=== PATIENT | female | born 1985 | race Hispanic/Latino ===

== ENCOUNTER → 2016-04-12 | Outpatient (CLI) | payer OTHER ==
[~2016-04-12] MED LIST: IBP800T PO; IBUP-1773 PO; OXYC-12 PO; PREN1TAB19 PO; PREN1TAB38 PO
== END ==
LOC: LAB 07:12
PROVIDERS: ATTEND Family Medicine
DX: O99.810 Abnormal glucose complicating pregnancy (principal)
CPT/HCPCS: 36415; 82951; 82952; 82962

== ENCOUNTER 2016-06-26 04:15 | Inpatient (IN) | payer OTHER ==
[2016-06-26] VITALS (20 sets, daily range): BP systolic 89–121; BP diastolic 46–75
[~2016-06-26] VITALS: Ht 147.3 cm; Wt 79.4 kg
[~2016-06-26 04:15] MED LIST changes: -IBUP-1773 PO
[2016-06-26] MEDS ORDERED: LACTATED RINGERS 1,000 ML IV ONE (04:35)
[2016-06-26] MEDS ORDERED: D5 LR IV SOLUTION 1,000 ML IV SCH (04:44)
[2016-06-26] MEDS ORDERED: BUTORPHANOL INJ 2 MG/ML (STADOL) VIAL IV PRN (04:45)
[2016-06-26] MEDS ORDERED: NS (IVPB) 50 ML ONE (04:46)
[2016-06-26] MEDS ORDERED: AMPICILLIN 2000 MG INJECTION (IM/IV) ONE (04:46)
[2016-06-26] MEDS ORDERED: OXYTOCIN/NORMAL SALINE 500 ML IV ONE (04:54)
[2016-06-26] MEDS ORDERED: MEPIVACAINE (CARBOCAINE) 2% 50 ML VIAL ONE (04:54)
[2016-06-26] MEDS ORDERED: MINERAL OIL CONCENTRATE 99.9% 15 ML UDC ONE (04:54)
[2016-06-26] MEDS ORDERED: LACTATED RINGERS 1,000 ML IV SCH (04:58)
[2016-06-26] MEDS ORDERED: AMPICILLIN INJECTION 2,000 MG in NS (IVPB) 50 ML IV SCH (04:58)
[2016-06-26 05:19] LABS: BASOPHILS % (AUTO) 0 % (0-10); EOSINOPHILS # (AUTO) 0.1 10^3/uL (0.0-0.3); EOSINOPHILS % (AUTO) 1 % (0-10); LYMPHOCYTES # (AUTO) 1.9 X 10^3 (1.0-4.0); LYMPHOCYTES % (AUTO) 21 % (12-44); MEAN CORPUSCULAR HEMOGLOBIN 31 PG (25-34); MEAN CORPUSCULAR HGB CONC 34 G/DL (32-36); MEAN CORPUSCULAR VOLUME 91 FL (80-99); MEAN PLATELET VOLUME 11.2 FL (7.4-10.4); MONOCYTES # (AUTO) 0.5 X 10^3 (0.0-1.0); MONOCYTES % (AUTO) 6 % (0-12); NEUTROPHILS # (AUTO) 6.4 X 10^3 (1.8-7.8); NEUTROPHILS % (AUTO) 73 % (42-75); PLATELET COUNT 195 10^3/uL (130-400); RED BLOOD COUNT 4.11 10^6/uL (4.35-5.85); RED CELL DISTRIBUTION WIDTH 13.9 % (10.0-14.5); WHITE BLOOD COUNT 8.9 10^3/uL (4.3-11.0)
--- NOTE | 2016-06-26 05:26 | History & Physical-OB ---
OB - Chief Complaint & HPI Date Date of Admission: Date of Admission: Jun 26, 2016 at 04:37 Chief Complaint/History OB-Reason for Admission/Chief: Onset of Labor Hx : 4 Hx Para: 3 Expected Date of Delivery: Jun 29, 2016 Gestational Age in Weeks: 39 Gestational Age in Days: 4 Admission Nurse Assessment Rev: Yes History of Labs GBS positive Allergies and Home Medications Allergies Coded Allergies: No Known Drug Allergies (Unverified , 11/30/10) Home Medications Vit/Fe Fumarate/Fa 1 Each Tablet, 1 EACH PO DAILY, (Reported) OB - History Hx of Present Care: Yes Ultrasounds: Normal mid trimester US Obstetrical Complications: None Medical Complications: None Obstetrical History Hx : 4 Hx Para: 3 Hx Termination: No Hx Total # of Abortions (Spona: 0 Hx Multiple Gestation: No Hx Stillbirth: No Hx Complication: No Hx Induced Hypertens: No Hx Maternal Gestational Diabet: No Delivery History Hx Dystocia: No Hx Large For Gestational Age I: No Hx Small for Gestational Age I: No Hx Section: No Hx Vaginal Delivery Post C-Sec: No Hx Blood Disorders: Yes Patient Past Medical History No chronic medical problems Social History/Family History Alcohol Use: Denies Use Recreational Drug Use: No Immunizations Tetanus Booster (TDap): Unknown OB - Admission Exam Physical Exam Vitals: Vital Signs 06/26/16 04:31 Temp 98.5 Pulse 94 Resp 18 B/P (MAP) 118/75 O2 Delivery Room Air Heart: Rhythm Normal Lungs: Clear Abdomen: Gravid Cervical Dilatation: 7cm Effacement: 75% Membranes: Intact Heart Rate: 140's Accelerations: Accelerations Present Intensity: Moderate Labs Laboratory Tests Test 06/26/16 04:45 Range/Units White Blood Count 8.9 4.3-11.0 10^3/uL Red Blood Count 4.11 L 4.35-5.85 10^6/uL Hemoglobin 12.8 11.5-16.0 G/DL Hematocrit 37 35-52 % Mean Corpuscular Volume 91 80-99 FL Mean Corpuscular Hemoglobin 31 25-34 PG Mean Corpuscular Hemoglobin Concent 34 32-36 G/DL Red Cell Distribution Width 13.9 10.0-14.5 % Platelet Count 195 130-400 10^3/uL Mean Platelet Volume 11.2 H 7.4-10.4 FL Neutrophils (%) (Auto) 73 42-75 % Lymphocytes (%) (Auto) 21 12-44 % Monocytes (%) (Auto) 6 0-12 % Eosinophils (%) (Auto) 1 0-10 % Basophils (%) (Auto) 0 0-10 % Neutrophils # (Auto) 6.4 1.8-7.8 X 10^3 Lymphocytes # (Auto) 1.9 1.0-4.0 X 10^3 Monocytes # (Auto) 0.5 0.0-1.0 X 10^3 Eosinophils # (Auto) 0.1 0.0-0.3 10^3/uL Basophils # (Auto) 0.0 0.0-0.1 10^3/uL OB - Assessment/Plan/Diagnosis Assessment Assessment: active labor Plan Plan: Other (labor management) Other Plan -doesn't desire epidural -stadol for IV analgesia 2. GBS positive -ampicillin dose PABLITO RICKEY FAM MD Jun 26, 2016 05:25
[2016-06-26] MEDS ORDERED: CATHETER FLUSH 10 ML SYR IV SCH ×2 (06:00→14:00)
[2016-06-26] MEDS ORDERED: MEPIVACAINE (CARBOCAINE) 2% 50 ML VIAL INJ PRN (06:30)
[2016-06-26] MEDS: OXYTOCIN/NORMAL SALINE 500 ML IV SCH ×2 (07:33→09:21)
--- NOTE | 2016-06-26 07:48 | OB Labor & Delivery Record ---
L&D History Date of Service Date of Service: Jun 26, 2016 History Expected Date of Delivery: Jun 29, 2016 Gestational Age in Weeks: 39 Hx : 4 Hx Para: 3 Complications Events: Routine care Operative Indications (Cesarea: N/A-Vaginal Delivery Intrapartal Events: None L&D Stage1 Stage One Onset of Labor - Date: Jun 26, 2016 Onset of Labor - Time: 03:00 Monitors and Tracing Monitor Mode: Internal Heart Rate: 130 Monitor Accelerations: Uniform Monitor Decelerations: None Station: 0 Business Office Assistant Variability: Average (6-10) Short Term Variability: Present Presentation: Vertex Vital Signs VS - Last 72 Hours, by Label 06/26/16 06/26/16 06/26/16 06/26/16 04:31 05:07 05:38 06:07 Temp 98.5 Pulse 94 90 93 90 Resp 18 18 18 18 B/P (MAP) 118/75 111/62 121/68 109/62 O2 Delivery Room Air Room Air Room Air Room Air 06/26/16 06:40 Pulse 93 Resp 18 B/P (MAP) 119/71 O2 Delivery Room Air Signs of Distress by FHT Signs of Distress no Rupture of Membranes Spontaneous Ruture of Membrane: No Amniotic Membrane Rupture Time: 0537 Amniotic Membrane Fluid Desc.: Clear L&D Stage2 Stage Two Stage II Date: Jun 26, 2016 Stage II Time: 07:33 Monitors and Tracing Monitor Mode: Internal Heart Rate: 130 Monitor Decelerations: None Business Office Assistant Variability: Average (6-10) Short Term Variability: Present Position: Left Occiput Anterior Presentation: Vertex Signs of Distress by FHT Signs of Distress no Cord Descript/Complications Cord Vessel Description: 3 Vessels Delivery Type Infant Delivery Method: Spontaneous Vaginal Anterior Shoulder: Left Episiotomy/Perineal Laceration Laceraction(s)/Extensions: No Condition of Infant Delivery 1 minute Comment: 8 5 minute Comment: 9 Condition of Condition of Infant: Living Exam: No Observed Abnormalities Resuscitation Resuscitation: N/A - Spontaneous Resp L&D Stage3 Stage Three Stage III Date: Jun 26, 2016 Stage III Time: 07:36 Pictocin Pitocin ml/hr: 125 Placenta Delivery Placenta Delivery: Spontaneous Delivery Summary Summary 150cc Condition of Delivery Examined: Cervix Examined Post Hemorrhage: No RICKEY FAM MD Jun 26, 2016 07:48
[2016-06-26] MEDS: IBUPROFEN 600 MG (MOTRIN) TAB PO SCH ×3 (07:57→21:13)
[2016-06-26] MEDS ORDERED: WITCH HAZEL(TUCKS) 40 EA JAR TOP PRN (08:00)
[2016-06-26] MEDS ORDERED: HYDROcodone/APAP 5 MG/325 MG (LORTAB) TAB PO PRN (08:00)
[2016-06-26] MEDS ORDERED: TETANUS,DIPTH,PERTUSS P/F (BOOSTRIX) 0.5 ML VIAL IM ONE (08:00)
[2016-06-26] MEDS ORDERED: MEASLES,MUMPS,RUBELLA 1 EA INJ SQ ONE (08:00)
[2016-06-26] MEDS ORDERED: BENZOCAINE/MENTHOL (DERMOPLAST) 56 ML CAN TP PRN (08:00)
[2016-06-27 00:40] VITALS: BP 106/66
[2016-06-27] MEDS: IBUPROFEN 600 MG (MOTRIN) TAB PO SCH ×3 (03:42→15:17)
[2016-06-27 05:20] VITALS: BP 98/59
[2016-06-27 06:47] LABS: BASOPHILS % (AUTO) 0 % (0-10); EOSINOPHILS # (AUTO) 0.1 10^3/uL (0.0-0.3); EOSINOPHILS % (AUTO) 1 % (0-10); LYMPHOCYTES # (AUTO) 2.1 X 10^3 (1.0-4.0); LYMPHOCYTES % (AUTO) 23 % (12-44); MEAN CORPUSCULAR HEMOGLOBIN 32 PG (25-34); MEAN CORPUSCULAR HGB CONC 34 G/DL (32-36); MEAN CORPUSCULAR VOLUME 92 FL (80-99); MEAN PLATELET VOLUME 10.9 FL (7.4-10.4); MONOCYTES # (AUTO) 0.5 X 10^3 (0.0-1.0); MONOCYTES % (AUTO) 6 % (0-12); NEUTROPHILS # (AUTO) 6.5 X 10^3 (1.8-7.8); NEUTROPHILS % (AUTO) 71 % (42-75); PLATELET COUNT 178 10^3/uL (130-400); RED BLOOD COUNT 3.67 10^6/uL (4.35-5.85); RED CELL DISTRIBUTION WIDTH 14.4 % (10.0-14.5); WHITE BLOOD COUNT 9.2 10^3/uL (4.3-11.0)
[2016-06-27] MEDS ORDERED: PRENATAL VITAMIN 1 EA TAB PO SCH (07:00)
[2016-06-27] MEDS ORDERED: IBUP-1773 PO (08:26)
--- NOTE | 2016-06-27 08:28 | Discharge Inst-Women's Service ---
Discharge Inst-Women's Serv Depart Medication/Instructions New, Converted or Re-Newed RX: RX on Chart Consults/Follow Up Additional Follow Up: Yes (with Dr. Fam in 6 weeks.) Activity Activity: Activity as Tolerated Nothing Inside Vagina: No [place] (for 6 weeks) Diet Discharge Diet: No Restrictions Return to The Hospital For: as below Symptoms to Report to : Swelling Increased, Bleeding Excessive, Urine Color Change, Fever Over 101 Degrees F, Vaginal Discharge Foul For Any Problems or Questions: Contact Your Physician RICKEY FAM MD Jun 27, 2016 08:28
--- NOTE | 2016-06-27 08:32 | Discharge Summary ---
Diagnosis/Chief Complaint Date of Admission Jun 26, 2016 at 04:37 Date of Discharge June 27, 2016 Admission Diagnosis Admission Diagnosis 1. Intrauterine at 39 weeks 4 days Discharge Diagnosis 1. Intrauterine at 39 weeks 4 days Chief Complaint/HPI Chief Complaint/HPI 31-year-old 4 now term for female who initially presented to labor and delivery at 39 weeks and 4 days gestation with onset of labor. 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 She was unsure whether her membranes were ruptured at home but there was slight leakage of clear fluid on the floor. Her EDC was noted to be at June. Patient received her care through [facility]. Discharge Summary-OBS Procedures 1. Spontaneous vaginal delivery Discharge Physical Examination Allergies: Coded Allergies: No Known Drug Allergies (Unverified , 11/30/10) Vitals & I&Os Intake and Output 06/27/16 00:00 Intake Total 500 ml Balance 500 ml Vital Sign - Last 12Hours Date Time Temp Pulse Resp B/P (MAP) Pulse Ox O2 Delivery O2 Flow Rate FiO2 06/27/16 05:20 98.0 82 18 98/59 97 Room Air General Appearance: No Acute Distress Respiratory: Clear to Auscultation Cardiovascular: Regular Rate Abdominal: Soft (with uterus firm) Hospital Course patient was admitted in the morning of June 26, 2016 and labor. She had scalp electrode placed. She quickly went on to completion at which time she delivered over an intact perineum a term viable male. Infant was given Apgars of 8 at 1 minute and 9 at 5 minutes. Delivery was accomplished at 07 33. Mother had minimal blood loss. Following delivery patient underwent routine care orders. She was noted to have no complications during the remainder of her hospital stay. She tolerated regular diet and was noted to ambulate. She breast-fed her . Her hemoglobin on day of dismissal was noted to be 11.6. She was felt ready for dismissal and she will follow up with Dr. Fam in 6 weeks at [facility]. Labs Laboratory Tests 06/27/16 06:15: White Blood Count 9.2, Red Blood Count 3.67L, Hemoglobin 11.6, Hematocrit 34L, Mean Corpuscular Volume 92, Mean Corpuscular Hemoglobin 32, Mean Corpuscular Hemoglobin Concent 34, Red Cell Distribution Width 14.4, Platelet Count 178, Mean Platelet Volume 10.9H, Neutrophils (%) (Auto) 71, Lymphocytes (%) (Auto) 23 , Monocytes (%) (Auto) 6, Eosinophils (%) (Auto) 1, Basophils (%) (Auto) 0, Neutrophils # (Auto) 6.5, Lymphocytes # (Auto) 2.1, Monocytes # (Auto) 0.5, Eosinophils # (Auto) 0.1, Basophils # (Auto) 0.0 Discharge Instructions to patient/family Please see electonic discharge instructions given to patient. Discharge Medications Reviewed and agree with Discharge Medication list on patient's Discharge Instruction sheet Clinical Quality Measures DVT/VTE Risk/Contraindication: Risk Factor Score Per Nursin RFS Level Per Nursing on Admit: 2=Moderate RICKEY FAM MD Jun 27, 2016 08:32
[2016-06-27 09:15] VITALS: BP 97/55
--- OUTSIDE RECORDS SUMMARY | 2016-07-20 09:11 | XMS REPORT | Continuity of Care Document ---
Author Author [facility] Organization [facility] Address Unknown Phone Unavailable Allergies Active Description Code Type Severity Reaction Onset Reported/Identified Relationship to Patient Clinical Status Yes No Known Drug Allergies [id number] Drug Allergy Unknown N/ A 11/30/2010 Medications Problems Date Dx Coded Attending Type Code Diagnosis Diagnosed By 12/02/2010 Ot 285.9 ANEMIA NOS 12/02/2010 Ot 648.21 ANEMIA-DELIVERED 12/02/2010 Ot 656.81 FET/PLAC PROB NEC-DELIV 12/02/2010 Ot 661.31 PRECIPITATE LABOR-DELIV 12/02/2010 Ot V06.1 [id number], COMBINED [ 12/02/2010 Ot V27.0 DELIVER-SINGLE LIVEBORN 05/20/2014 Ot V28.89 05/20/2014 Ot 652.23 05/20/2014 Ot V28.89 05/20/2014 Ot 641.93 06/18/2014 Ot 641.23 09/16/2014 Ot V28.89 09/16/2014 Ot 652.23 09/16/2014 Ot V28.89 09/16/2014 Ot 641.93 09/16/2014 Ot V28.81 09/16/2014 Ot 641.23 09/16/2014 Ot 641.23 09/24/2014 SARWAT HUFFMAN, RICKEY Alberts Ot V22.1 SUPERVIS OTH NORMAL PREG 09/26/2014 RICKEY FAM MD Ot 663.91 CORD COMPLICAT NOS-DELIV 09/26/2014 RICKEY FAM MD Ot V27.0 DELIVER-SINGLE LIVEBORN 10/08/2014 Ot V28.89 10/08/2014 Ot 652.23 10/08/2014 Ot V28.89 10/08/2014 Ot 641.93 10/08/2014 Ot V28.81 10/08/2014 Ot 641.23 11/05/2014 Ot V28.89 11/05/2014 Ot 652.23 11/05/2014 Ot V28.89 11/05/2014 Ot 641.93 11/05/2014 Ot V28.81 11/05/2014 Ot 641.23 11/07/2014 Ot V28.89 11/07/2014 Ot 652.23 11/07/2014 Ot V28.89 11/07/2014 Ot 641.93 11/07/2014 Ot V28.81 11/07/2014 Ot 641.23 12/17/2015 RICKEY FAM MD Ot Z34.81 ENCOUNTER FOR SUPRVSN OF NORMAL PREGNANC 12/17/2015 RICKEY FAM MD Ot Z36 ENCOUNTER FOR SCREENING OF MOT 01/12/2016 Ot 652.23 BREECH PRESENT-ANTEPART 01/12/2016 Ot V28.89 OTHER SPECIFIED SCREENING 01/12/2016 Ot 641.93 ANTEPART HEM NOS-ANTEPAR 01/12/2016 Ot V28.81 ENCOUNTER FOR ANATOMIC SURVEY 01/12/2016 Ot 641.23 TYREE SEPAR PLAC-ANTEPART 01/12/2016 RICKEY FAM MD Ot Z34.81 ENCOUNTER FOR SUPRVSN OF NORMAL PREGNANC 01/12/2016 RICKEY FAM MD Ot Z36 ENCOUNTER FOR SCREENING OF MOT 02/05/2016 RICKEY FAM MD Ot Z36 ENCOUNTER FOR SCREENING OF MOT 02/05/2016 RICKEY FAM MD, Ot Z3A.19 19 WEEKS GESTATION OF 02/27/2016 RICKEY FAM MD Ot Z36 ENCOUNTER FOR SCREENING OF MOT 02/27/2016 RICKEY FAM MD, Ot Z3A.19 19 WEEKS GESTATION OF 04/12/2016 Ot V28.81 ENCOUNTER FOR ANATOMIC SURVEY 04/12/2016 Ot 641.23 TYREE SEPAR PLAC-ANTEPART 04/12/2016 RICKEY FAM MD Ot Z34.81 ENCOUNTER FOR SUPRVSN OF NORMAL PREGNANC 04/12/2016 RICKEY FAM MD Ot Z36 ENCOUNTER FOR SCREENING OF MOT 04/12/2016 RICKEY FAM MD Ot Z36 ENCOUNTER FOR SCREENING OF MOT 04/12/2016 RICKEY FMA MD, Ot Z3A.19 19 WEEKS GESTATION OF 04/12/2016 Ot V28.81 ENCOUNTER FOR ANATOMIC SURVEY 04/12/2016 Ot 641.23 TYREE SEPAR PLAC-ANTEPART 04/12/2016 RICKEY FAM MD Ot Z34.81 ENCOUNTER FOR SUPRVSN OF NORMAL PREGNANC 04/12/2016 RICKEY FAM MD Ot Z36 ENCOUNTER FOR SCREENING OF MOT 04/12/2016 RICKEY FAM MD Ot Z36 ENCOUNTER FOR SCREENING OF MOT 04/12/2016 RICKEY FAM MD, Ot Z3A.19 19 WEEKS GESTATION OF 04/15/2016 RICKEY FAM MD Ot O99.810 ABNORMAL GLUCOSE COMPLICATING 05/10/2016 RICKEY FAM MD Ot O99.810 ABNORMAL GLUCOSE COMPLICATING 06/26/2016 Ot V28.81 ENCOUNTER FOR ANATOMIC SURVEY 06/26/2016 Ot 641.23 TYREE SEPAR PLAC-ANTEPART 06/26/2016 RICKEY FAM MD, Ot Z34.81 ENCOUNTER FOR SUPRVSN OF NORMAL PREGNANC 06/26/2016 RICKEY FAM MD Ot Z36 ENCOUNTER FOR SCREENING OF MOT 06/26/2016 RICKEY FAM MD, Ot Z36 ENCOUNTER FOR SCREENING OF MOT 06/26/2016 RICKEY FAM MD, Ot Z3A.19 19 WEEKS GESTATION OF 06/26/2016 RICKEY FAM MD Ot O99.810 ABNORMAL GLUCOSE COMPLICATING 06/27/2016 RICKEY FAM MD Ot O99.824 STREPTOCOCCUS B CARRIER STATE COMPLICATI 06/27/2016 RICKEY FAM MD Ot Z37.0 SINGLE LIVE 06/27/2016 RICKEY FAM MD, Ot Z3A.39 39 WEEKS GESTATION OF 06/28/2016 Ot V28.81 ENCOUNTER FOR ANATOMIC SURVEY 06/28/2016 Ot 641.23 TYREE SEPAR PLAC-ANTEPART 06/28/2016 RICKEY FAM MD, Ot Z34.81 ENCOUNTER FOR SUPRVSN OF NORMAL PREGNANC 06/28/2016 RICKEY FAM MD Ot Z36 ENCOUNTER FOR SCREENING OF MOT 06/28/2016 RICKEY FAM MD, Ot Z36 ENCOUNTER FOR SCREENING OF MOT 06/28/2016 RICKEY FAM MD, Ot Z3A.19 19 WEEKS GESTATION OF 06/28/2016 RICKEY FAM MD, Ot O99.810 ABNORMAL GLUCOSE COMPLICATING Procedures Code Description Performed By Performed On 73.59 MANUAL ASSIST DELIV NEC 11/30/2010 73.59 MANUAL ASSIST DELIV NEC 09/25/2014 [id number] DELIVERY OF PRODUCTS OF CONCEPTION, EXTE 06/26/2016 Results Test Result Range Capillary blood glucose measurement by glucometer (mass/volume) - 04/12/16 07: 36 Capillary blood glucose measurement by glucometer (mass/volume) 86 mg/dL 70-110 Serum or plasma glucose measurement 3 hours post challenge (mass/volume) - 07:36 Serum or plasma glucose measurement 3 hours post challenge (mass/volume) NRG Complete blood count (CBC) with automated white blood cell (WBC) differential - 06/26/16 04:45 Blood leukocytes automated count (number/volume) 8.9 10*3/ uL 4.3-11.0 Blood erythrocytes automated count (number/volume) 4.11 10*6 /uL 4.35-5.85 Venous blood hemoglobin measurement (mass/volume) 12.8 g/dL 11.5-16.0 Blood hematocrit (volume fraction) 37 % 35-52 Automated erythrocyte mean corpuscular volume 91 [foz_us] 80-99 Automated erythrocyte mean corpuscular hemoglobin (mass per erythrocyte) 31 pg 25-34 Automated erythrocyte mean corpuscular hemoglobin concentration measurement ( mass/volume) 34 g/dL 32-36 Automated erythrocyte distribution width ratio 13.9 % 10.0-14.5 Automated blood platelet count (count/volume) 195 10*3/uL 130-400 Automated blood platelet mean volume measurement 11.2 [foz_ us] 7.4-10.4 Automated blood neutrophils/100 leukocytes 73 % 42-75 Automated blood lymphocytes/100 leukocytes 21 % 12-44 Blood monocytes/100 leukocytes 6 % 0-12 Automated blood eosinophils/100 leukocytes 1 % 0-10 Automated blood basophils/100 leukocytes 0 % 0-10 Blood neutrophils automated count (number/volume) 6.4 10*3 1.8-7.8 Blood lymphocytes automated count (number/volume) 1.9 10*3 1.0-4.0 Blood monocytes automated count (number/volume) 0.5 10*3 0.0-1.0 Automated eosinophil count 0.1 10*3/uL 0.0-0.3 Automated blood basophil count (count/volume) 0.0 10*3/uL 0.0-0.1 Blood type T Indirect antibody screen panel - 06/26/16 04:45 ABO+Rh group OP NRG Transfusion band number [id number] NRG Blood group antibody screen NEGATIVE NRG Complete blood count (CBC) with automated white blood cell (WBC) differential - 06/27/16 06:15 Blood leukocytes automated count (number/volume) 9.2 10*3/ uL 4.3-11.0 Blood erythrocytes automated count (number/volume) 3.67 10*6 /uL 4.35-5.85 Venous blood hemoglobin measurement (mass/volume) 11.6 g/dL 11.5-16.0 Blood hematocrit (volume fraction) 34 % 35-52 Automated erythrocyte mean corpuscular volume 92 [foz_us] 80-99 Automated erythrocyte mean corpuscular hemoglobin (mass per erythrocyte) 32 pg 25-34 Automated erythrocyte mean corpuscular hemoglobin concentration measurement ( mass/volume) 34 g/dL 32-36 Automated erythrocyte distribution width ratio 14.4 % 10.0-14.5 Automated blood platelet count (count/volume) 178 10*3/uL 130-400 Automated blood platelet mean volume measurement 10.9 [foz_ us] 7.4-10.4 Automated blood neutrophils/100 leukocytes 71 % 42-75 Automated blood lymphocytes/100 leukocytes 23 % 12-44 Blood monocytes/100 leukocytes 6 % 0-12 Automated blood eosinophils/100 leukocytes 1 % 0-10 Automated blood basophils/100 leukocytes 0 % 0-10 Blood neutrophils automated count (number/volume) 6.5 10*3 1.8-7.8 Blood lymphocytes automated count (number/volume) 2.1 10*3 1.0-4.0 Blood monocytes automated count (number/volume) 0.5 10*3 0.0-1.0 Automated eosinophil count 0.1 10*3/uL 0.0-0.3 Automated blood basophil count (count/volume) 0.0 10*3/uL 0.0-0.1 Encounters ACCT No. Visit Date/Time Discharge Status Pt. Type Provider Facility Loc./Unit Complaint [id number] 06/26/2016 04:37:00 2016 15:30:00 DIS Inpatient RICKEY FAM MD [facility] LABOR [id number] 09/25/2014 03:05:00 2014 20:48:00 DIS Inpatient RICKEY FAM MD [facility] LABOR [id number] 09/24/2014 18:24:00 2014 21:50:00 DIS Outpatient RICKEY FAM MD [facility] WSo OB EVAL [id number] 04/12/2016 07:12:00 ACT Outpatient RICKEY FAM MD [facility] LAB ABNORMAL GLUCOSE TOLERANCE TEST IN [id number] 02/04/2016 16:22:00 ACT Outpatient RICKEY FAM MD [facility] RAD UNABLE TO HEAR HEART TONES, SURVEY [id number] 12/16/2015 13:16:00 ACT Outpatient RICKEY FAM MD [facility] RAD IN MULTIGRAVIDA [id number] 06/14/2014 10:10:00 Document Registration [id number] 05/20/2014 10:55:00 Document Registration [id number] 11/30/2010 17:50:00 Document Registration [id number] 09/07/2010 15:29:00 Document Registration [id number] 08/25/2010 10:31:00 Document Registration [id number] 06/26/2010 13:13:00 Document Registration
== END 2016-06-27 15:30 | disposition home or self-care (01) | DRG 775 ==
LOC: DELPENDDIS → WSo 04:15 → LDRP 04:18 → WSo 04:37 → LDRP 04:37
PROVIDERS: ADMIT Family Medicine; ATTEND Family Medicine
PROC: 10E0XZZ Delivery of Products of Conception, External Approach (ICD-10-PCS; principal; 2016-06-26)
DX: O99.824 Streptococcus B carrier state complicating childbirth (principal); Z3A.39 39 weeks gestation of pregnancy; Z37.0 Single live birth
CPT/HCPCS: 36415; 85025; 86850; 86900; 86901; 99212

== ENCOUNTER → 2017-07-07 | Outpatient (CLI) | payer SELFPAY ==
[~2017-07-07] MED LIST changes: +IBUP-1773 PO
--- NOTE | 2017-07-07 17:05 | Diagnostic Imaging Report ---
INDICATION: Size and dates. TECHNIQUE: Multiple real-time grayscale images were obtained over the gravid uterus. COMPARISON: None during this . FINDINGS: A single live intrauterine fetus is seen measuring 22 weeks 5 days in size with EDC of 11/05/2017. The fetus is in cephalic presentation. Amniotic fluid appears qualitatively normal. Placenta is posterior and grade 2 with no evidence of previa. heart rate is 167 beats per minute. Cervical length was 4.9 cm. survey showed normal-appearing kidneys, bladder, stomach, intracranial structures, and four-chamber heart view. Normal-appearing three-vessel cord was seen as well as cord insertion. spine could not be visualized due to position. Maternal adnexa were not visualized, there is no free fluid. Biometrical measurements are as follows: Biparietal 5.41 cm, age 22 weeks 4 days. Head circumference 19.77 cm, age 22 weeks 0 days. Abdominal circumference 18.24 cm, age 23 weeks 1 days. Femur length 3.98 cm, age 22 weeks 6 days. Sonographic estimate age: 22 weeks 5 days. Sonographic estimated date of delivery: 11/05/2017. Estimated Weight: 540 gm (+/- 79 gm). LMP percentile: n/a%. heart rate: 167 beats per minute. number: 1 of 1. IMPRESSION: Single live intrauterine fetus measuring 22 weeks 5 days in size, as above. There was no detectable abnormality, although the spine was not well seen due to position. Consider followup, if clinically warranted. Dictated by: Dictated on workstation # [id number]
== END ==
LOC: RAD 15:26
PROVIDERS: ATTEND Family Medicine
DX: Z34.82 Encounter for supervision of other normal pregnancy, second trimester (principal); Z3A.22 22 weeks gestation of pregnancy
CPT/HCPCS: 76805

== ENCOUNTER → 2017-09-10 | Outpatient (CLI) | payer SELFPAY | LOC: LAB 09:16 | PROVIDERS: ATTEND Family Medicine | DX: O99.810 Abnormal glucose complicating pregnancy (principal) | CPT/HCPCS: 36415; 82951; 82952 ==

== ENCOUNTER 2017-11-01 21:21 | Inpatient (IN) | payer OTHER ==
[~2017-11-01] VITALS: Ht 152.4 cm; Wt 80.4 kg
[2017-11-01 21:40] VITALS: BP 125/78
[2017-11-01] MEDS ORDERED: D5 LR IV SOLUTION 1,000 ML IV ONE (21:42)
[2017-11-01] MEDS ORDERED: MEPIVACAINE (CARBOCAINE) 2% 20 ML VIAL ONE (21:59)
[2017-11-01] MEDS ORDERED: OXYTOCIN/NORMAL SALINE 500 ML IV ONE (22:00)
[2017-11-01] MEDS ORDERED: AMPICILLIN 2000 MG INJECTION (IM/IV) ONE (22:05)
[2017-11-01] MEDS ORDERED: NS (IVPB) 50 ML ONE (22:05)
--- NOTE | 2017-11-01 22:13 | History & Physical-OB ---
OB - Chief Complaint & HPI Date/Time Date of Admission: Date of Admission: Time Seen by Provider: 22:00 Chief Complaint/History OB-Reason for Admission/Chief: Onset of Labor Hx : 5 Hx Para: 4 Expected Date of Delivery: Nov 09, 2017 Gestational Age in Weeks: 38 Gestational Age in Days: 6 Admission Nurse Assessment Rev: Yes History of Labs GBS positive Allergies and Home Medications Allergies Coded Allergies: No Known Drug Allergies (Unverified , 11/30/10) Home Medications Ibuprofen 600 Mg Tablet, 600 MG PO Q6H Prescribed by: RICKEY FAM on 06/27/16 0826 Vit/Fe Fumarate/Fa 1 Each Tablet, 1 EACH PO DAILY, (Reported) Patient Home Medication List Home Medication List Reviewed: Yes OB - History Hx of Present Care: Yes Ultrasounds: Normal mid trimester US Obstetrical Complications: None Medical Complications: None Obstetrical History Hx Termination: No Hx Multiple Gestation: No Hx Stillbirth: No Hx Complication: No Hx Induced Hypertens: No Hx Maternal Gestational Diabet: No Delivery History Hx Dystocia: No Hx Large For Gestational Age I: No Hx Small for Gestational Age I: No Hx Section: No Hx Vaginal Delivery Post C-Sec: No Hx Blood Disorders: Yes Patient Past Medical History No chronic medical problems Social History/Family History Recent Infectious Disease Expo: No Immunizations Tetanus Booster (TDap): Unknown Date of Influenza Vaccine: Jan 07, 2016 OB - Admission Exam Physical Exam HEENT: Moist Membranes Heart: Rhythm Normal Lungs: Clear Abdomen: Gravid Cervical Dilatation: 8cm Effacement: 75% Station: -2 Membranes: Intact Heart Rate: 140's Accelerations: Accelerations Present Decelerations: No Decelerations Shelter Variability: Average (6-25) Contractions on Admission: < 5 Minutes Apart Intensity: Moderate OB - Assessment/Plan/Diagnosis Assessment Assessment: active labor Admission Dx IUP at term 38w6d gestation in active labor Admission Status: Inpatient Order (span 2 midnights) Reason for Inpatient Admission: L&D Plan Plan: Expectant Management Induction Method: AROM Other Plan GBS positive. Will give ampicillin RICKEY MTZ MD Nov 01, 2017 22:13
[2017-11-01] MEDS ORDERED: D5 LR IV SOLUTION 1,000 ML IV SCH (22:16)
[2017-11-01] MEDS ORDERED: AMPICILLIN INJECTION 2,000 MG in NS (IVPB) 50 ML IV SCH (22:16)
[2017-11-01 22:22] LABS: BASOPHILS % (AUTO) 0 % (0-10); EOSINOPHILS % (AUTO) 0 % (0-10); HEMATOCRIT 39 % (35-52); HEMOGLOBIN 13.7 G/DL (11.5-16.0); LYMPHOCYTES # (AUTO) 2.9 X 10^3 (1.0-4.0); LYMPHOCYTES % (AUTO) 27 % (12-44); MEAN CORPUSCULAR HEMOGLOBIN 32 PG (25-34); MEAN CORPUSCULAR HGB CONC 35 G/DL (32-36); MEAN CORPUSCULAR VOLUME 91 FL (80-99); MEAN PLATELET VOLUME 11.4 FL (7.4-10.4); MONOCYTES # (AUTO) 0.7 X 10^3 (0.0-1.0); MONOCYTES % (AUTO) 6 % (0-12); NEUTROPHILS # (AUTO) 7.3 X 10^3 (1.8-7.8); NEUTROPHILS % (AUTO) 67 % (42-75); PLATELET COUNT 185 10^3/uL (130-400); RED BLOOD COUNT 4.32 10^6/uL (4.35-5.85); RED CELL DISTRIBUTION WIDTH 13.5 % (10.0-14.5); WHITE BLOOD COUNT 10.9 10^3/uL (4.3-11.0)
[2017-11-01] MEDS ORDERED: MINERAL OIL CONCENTRATE 99.9% 15 ML UDC TOP PRN (22:30)
[2017-11-01 23:13] VITALS: BP 117/59
[2017-11-01] MEDS ORDERED: OXYTOCIN/NORMAL SALINE 500 ML IV SCH (23:19)
--- NOTE | 2017-11-01 23:23 | OB Labor & Delivery Record ---
L&D History Date of Service Date of Service: Nov 01, 2017 History Expected Date of Delivery: Nov 09, 2017 Gestational Age in Weeks: 38 Hx : 5 Hx Para: 4 Complications Events: Routine care Operative Indications (Cesarea: N/A-Vaginal Delivery Intrapartal Events: None Other Complications GBS positive and received 1 dose of ampicillin L&D Stage1 Stage One Onset of Labor - Date: Nov 01, 2017 Onset of Labor - Time: 21:00 Monitors and Tracing Monitor Mode: Internal Heart Rate: 140 Monitor Accelerations: Uniform Monitor Decelerations: None Cut And Print Machine Operator Variability: Average (6-10) Short Term Variability: Present Presentation: Vertex Signs of Distress by FHT Signs of Distress no Rupture of Membranes Spontaneous Ruture of Membrane: No Amniotic Membrane Rupture Time: 22:00 Amniotic Membrane Fluid Desc.: Clear Vaginal Bleeding Description: None L&D Stage2 Stage Two Stage II Date: Nov 01, 2017 Stage II Time: 23:00 Monitors and Tracing Monitor Mode: Internal Heart Rate: 140 Monitor Accelerations: Uniform Monitor Decelerations: None Senior Care Variability: Average (6-10) Short Term Variability: Present Position: Left Occiput Anterior Presentation: Vertex Signs of Distress by FHT Signs of Distress no Cord Descript/Complications Cord Vessel Description: 3 Vessels Delivery Type Infant Delivery Method: Spontaneous Vaginal Anterior Shoulder: Left Episiotomy/Perineal Laceration Laceraction(s)/Extensions: No Condition of Delivery 1 minute Comment: 9 5 minute Comment: 9 Condition of Infant Condition of : Living Exam: No Observed Abnormalities Resuscitation Resuscitation: N/A - Spontaneous Resp L&D Stage3 Stage Three Stage III Date: Nov 01, 2017 Stage III Time: 23:05 Pictocin Pitocin ml/hr: 125 Placenta Delivery Placenta Delivery: Spontaneous Delivery Summary Summary Estimated blood loss (mL): 150 Condition of Delivery Examined: Cervix Examined Post Hemorrhage: No Intervention Required none RICKEY FAM MD Nov 01, 2017 23:22
[2017-11-01] MEDS ORDERED: IBUPROFEN 600 MG (MOTRIN) TAB PO ONE (23:24)
[2017-11-01 23:25] VITALS: BP 117/55
[2017-11-01] MEDS: IBUPROFEN 600 MG (MOTRIN) TAB PO SCH (23:28)
[2017-11-01] MEDS ORDERED: MEASLES,MUMPS,RUBELLA 1 EA INJ SQ ONE (23:30)
[2017-11-01] MEDS ORDERED: BENZOCAINE/MENTHOL (DERMOPLAST) 56 ML CAN TP PRN (23:30)
[2017-11-01] MEDS ORDERED: WITCH HAZEL(TUCKS) 40 EA JAR TOP PRN (23:30)
[2017-11-01] MEDS ORDERED: TETANUS,DIPTH,PERTUSS P/F (BOOSTRIX) 0.5 ML VIAL IM ONE (23:30)
[2017-11-01 23:40] VITALS: BP 109/56
[2017-11-01 23:55] VITALS: BP 108/57
[2017-11-02] VITALS (9 sets, daily range): BP systolic 99–115; BP diastolic 51–68
[2017-11-02] MEDS: HYDROcodone/APAP 5 MG/325 MG (LORTAB) TAB PO PRN ×2 (01:25→16:48)
[2017-11-02] MEDS ORDERED: AMPICILLIN INJECTION 1,000 MG in NS (IVPB) 50 ML IV SCH (02:30)
[2017-11-02 05:37] LABS: BASOPHILS % (AUTO) 0 % (0-10); EOSINOPHILS % (AUTO) 0 % (0-10); HEMATOCRIT 37 % (35-52); HEMOGLOBIN 13.1 G/DL (11.5-16.0); LYMPHOCYTES # (AUTO) 2.1 X 10^3 (1.0-4.0); LYMPHOCYTES % (AUTO) 15 % (12-44); MEAN CORPUSCULAR HEMOGLOBIN 33 PG (25-34); MEAN CORPUSCULAR HGB CONC 36 G/DL (32-36); MEAN CORPUSCULAR VOLUME 92 FL (80-99); MEAN PLATELET VOLUME 11.1 FL (7.4-10.4); MONOCYTES # (AUTO) 0.9 X 10^3 (0.0-1.0); MONOCYTES % (AUTO) 6 % (0-12); NEUTROPHILS # (AUTO) 11.4 X 10^3 (1.8-7.8); NEUTROPHILS % (AUTO) 79 % (42-75); PLATELET COUNT 166 10^3/uL (130-400); RED BLOOD COUNT 3.98 10^6/uL (4.35-5.85); RED CELL DISTRIBUTION WIDTH 13.4 % (10.0-14.5); WHITE BLOOD COUNT 14.4 10^3/uL (4.3-11.0)
[2017-11-02] MEDS ORDERED: CATHETER FLUSH 10 ML SYR IV SCH ×2 (06:00)
[2017-11-02] MEDS: IBUPROFEN 600 MG (MOTRIN) TAB PO SCH ×3 (06:01→19:20)
--- NOTE | 2017-11-02 07:53 | Progress Note (SOAP) ---
Subjective Subjective/Events-last exam No complaints this am. Review of Systems Date Seen by Provider: Nov 02, 2017 Time Seen by Provider: 07:20 Objective Exam Last Set of Vital Signs Vital Signs Date Time Temp Pulse Resp B/P (MAP) Pulse Ox O2 Delivery O2 Flow Rate FiO2 11/02/17 06:02 98.0 83 20 99/63 (75) 96 Room Air Capillary Refill : I&O Intake and Output 11/02/17 00:00 Intake Total 850 ml Balance 850 ml Intake IV Total 850 ml Daily Weight Change No Lungs: Clear to Auscultation Abdomen: Soft (with firm uterus) Results/Procedures Lab Laboratory Tests 11/01/17 21:50: White Blood Count 10.9, Red Blood Count 4.32L, Hemoglobin 13.7, Hematocrit 39, Mean Corpuscular Volume 91, Mean Corpuscular Hemoglobin 32, Mean Corpuscular Hemoglobin Concent 35, Red Cell Distribution Width 13.5, Platelet Count 185, Mean Platelet Volume 11.4H, Neutrophils (%) (Auto) 67, Lymphocytes (%) (Auto) 27 , Monocytes (%) (Auto) 6, Eosinophils (%) (Auto) 0, Basophils (%) (Auto) 0, Neutrophils # (Auto) 7.3, Lymphocytes # (Auto) 2.9, Monocytes # (Auto) 0.7, Eosinophils # (Auto) 0.0, Basophils # (Auto) 0.0 11/02/17 05:23: White Blood Count 14.4H, Red Blood Count 3.98L, Hemoglobin 13.1, Hematocrit 37, Mean Corpuscular Volume 92, Mean Corpuscular Hemoglobin 33, Mean Corpuscular Hemoglobin Concent 36, Red Cell Distribution Width 13.4, Platelet Count 166, Mean Platelet Volume 11.1H, Neutrophils (%) (Auto) 79H, Lymphocytes (%) (Auto) 15, Monocytes (%) (Auto) 6, Eosinophils (%) (Auto) 0, Basophils (%) (Auto) 0, Neutrophils # (Auto) 11.4H, Lymphocytes # (Auto) 2.1, Monocytes # (Auto) 0.9, Eosinophils # (Auto) 0.0, Basophils # (Auto) 0.0 Assessment/Plan Assessment/Plan Assessment & Plan S/P -orders as written -home in the am of 11/03 Clinical Quality Measures DVT/VTE Risk/Contraindication: Risk Factor Score Per Nursin RFS Level Per Nursing on Admit: 1=Low/No VTE PPX RICKEY FAM MD Nov 02, 2017 07:53
[2017-11-02] MEDS: PRENATAL VITAMIN 1 EA TAB PO SCH (08:50)
[2017-11-03 02:27] VITALS: BP 98/62
--- NOTE | 2017-11-03 07:43 | Discharge Summary ---
Diagnosis/Chief Complaint Date of Admission Nov 01, 2017 at 22:23 Date of Discharge November 03, 2017 Admission Diagnosis Admission Diagnosis 1. Intrauterine at 38 weeks 6 days gestation Discharge Diagnosis 1. Intrauterine at 38 weeks 6 days gestation Chief Complaint/HPI Chief Complaint/HPI 32-year-old 5 term 4 female who initially presents to labor and delivery with uterine contractions in the evening of November 01, 2017. She was found to be dilated to 8 cm upon presentation. Her care was obtained through [facility] and essentially unremarkable. Discharge Summary-OBS Procedures 1. Spontaneous vaginal delivery Discharge Physical Examination Allergies: Coded Allergies: No Known Drug Allergies (Unverified , 11/30/10) Vitals & I&Os Vital Sign - Last 12Hours Date Time Temp Pulse Resp B/P (MAP) Pulse Ox O2 Delivery O2 Flow Rate FiO2 11/03/17 02:27 98.3 70 18 98/62 (74) 97 Room Air General Appearance: No Acute Distress HEENT: Mucous Memb Moist/[place] Respiratory: Clear to Auscultation Cardiovascular: Regular Rate Abdominal: Soft (With uterus firm) Hospital Course Patient presented to women's services during the evening of November 01, 2017 in active labor. She underwent amniotomy with placement of scalp electrode. She delivered shortly afterwards a term viable male. received Apgars of 9 at 1 minute and 9 at 5 minutes. See labor and delivery summary for full details. Following delivery she underwent routine care orders. There was no complications during the remainder of hospital stay. Her hemoglobin the day after delivery was 13.1 compared to 13.7 on admission. She tolerated regular diet and was ambulatory. She denied any shortness of breath or chest pain. Patient was felt ready for dismissal in the morning of November 03, 2017. All questions answered. She will follow-up with [facility] in 6 weeks for her check. Discharge Instructions to patient/family Please see electronic discharge instructions given to patient. Discharge Medications Reviewed and agree with Discharge Medication list on patient's Discharge Instruction sheet Clinical Quality Measures DVT/VTE Risk/Contraindication: Risk Factor Score Per Nursin RFS Level Per Nursing on Admit: 1=Low/No VTE PPX RICKEY FAM MD Nov 03, 2017 07:43
--- NOTE | 2017-11-03 07:47 | Discharge Inst-Women's Service ---
Discharge Inst-Women's Serv Consults/Follow Up Additional Follow Up: Yes (with Dr Fam in 6 weeks.) Activity Activity: Activity as Tolerated Driving Instructions: No Driving for 1 Week Nothing Inside Vagina: No [place] (for 6 weeks.) Diet Discharge Diet: Regular Diet Return to The Hospital For: see below Symptoms to Report to : Bleeding Excessive, Fever Over 101 Degrees F, Vaginal Discharge Foul For Any Problems or Questions: Contact Your Physician RICKEY FAM MD Nov 03, 2017 07:47
[2017-11-03 08:45] VITALS: BP 107/71
[2017-11-03] MEDS: IBUPROFEN 600 MG (MOTRIN) TAB PO SCH (08:55)
[2017-11-03] MEDS: PRENATAL VITAMIN 1 EA TAB PO SCH (08:55)
[2017-11-03 14:00] VITALS: BP 112/65
[2017-11-03 15:10] VITALS: BP 112/65
== END 2017-11-03 15:10 | disposition home or self-care (01) | DRG 775 ==
LOC: WSo 21:21 → LDRP 21:25 → WSo 21:50 → LDRP 22:23
PROVIDERS: ADMIT Family Medicine; ATTEND Family Medicine
PROC: 10E0XZZ Delivery of Products of Conception, External Approach (ICD-10-PCS; principal; 2017-11-01)
DX: O99.824 Streptococcus B carrier state complicating childbirth (principal); Z37.0 Single live birth; Z3A.38 38 weeks gestation of pregnancy
CPT/HCPCS: 36415; 85025; 86850; 86900; 86901; 99212

== ENCOUNTER 2017-11-06 17:28 | Emergency (ER) | payer SELFPAY ==
[~2017-11-06] VITALS: Ht 157.5 cm; Wt 72.6 kg
--- OUTSIDE RECORDS SUMMARY | 2017-11-06 17:40 | XMS REPORT | Continuity of Care Document ---
Author Author [facility] Organization [facility] Address Unknown Phone Unavailable Allergies Active Description Code Type Severity Reaction Onset Reported/Identified Relationship to Patient Clinical Status Yes No Known Drug Allergies [id number] Drug Allergy Unknown N/A 11/30/2010 Medications There is no data. Problems Date Dx Coded Attending Type Code Diagnosis Diagnosed By 12/02/2010 Ot 285.9 ANEMIA NOS 12/02/2010 Ot 648.21 ANEMIA- DELIVERED 12/02/2010 Ot 656.81 FET/PLAC PROB NEC-DELIV 12/02/2010 Ot 661.31 PRECIPITATE LABOR-DELIV 12/02/2010 Ot V06.1 DIPHTHERIA- TETANUS-PERTUSSIS, COMBINED [ 12/02/2010 Ot V27.0 DELIVER- SINGLE LIVEBORN 05/20/2014 Ot V28.89 05/20/2014 Ot 652.23 05/20/2014 Ot V28.89 05/20/2014 Ot 641.93 06/18/2014 Ot 641.23 09/16/2014 Ot V28.89 09/16/2014 Ot 652.23 09/16/2014 Ot V28.89 09/16/2014 Ot 641.93 09/16/2014 Ot V28.81 09/16/2014 Ot 641.23 09/16/2014 Ot 641.23 09/24/2014 SARWAT HUFFMAN, RICKEY Alberts Ot V22.1 SUPERVIS OT NORMAL PREG 09/26/2014 RICKEY FAM MD Ot [...] 641.23 TYREE SEPAR PLAC-ANTEPART 04/12/2016 RICKEY FAM MD, Ot Z34.81 ENCOUNTER FOR SUPRVSN OF NORMAL PREGNANC 04/12/2016 RICKEY FAM MD Ot Z36 ENCOUNTER FOR SCREENING OF MOT 04/12/2016 RICKEY FAM MD Ot Z36 ENCOUNTER FOR SCREENING OF MOT 04/12/2016 RICKEY FAM MD, Ot Z3A.19 19 WEEKS GESTATION OF 04/15/2016 RICKEY FAM MD Ot O99.810 ABNORMAL GLUCOSE COMPLICATING 05/10/2016 RICKEY FAM MD, Ot O99.810 ABNORMAL GLUCOSE COMPLICATING 06/26/2016 Ot V28.81 ENCOUNTER FOR ANATOMIC SURVEY 06/26/2016 Ot 641.23 TYREE SEPAR PLAC-ANTEPART 06/26/2016 RICKEY FAM MD, Ot Z34.81 ENCOUNTER FOR SUPRVSN OF NORMAL PREGNANC 06/26/2016 RICKEY FAM MD, Ot Z36 ENCOUNTER FOR SCREENING OF MOT 06/26/2016 RICKEY FAM MD Ot Z36 ENCOUNTER FOR SCREENING OF MOT 06/26/2016 RICKEY FAM MD, Ot Z3A.19 19 WEEKS GESTATION OF 06/26/2016 RICKEY FAM MD, Ot O99.810 ABNORMAL GLUCOSE COMPLICATING 06/27/2016 RICKEY FAM MD Ot O99.824 STREPTOCOCCUS B CARRIER STATE COMPLICATI 06/27/2016 RICKEY FAM MD, Ot Z37.0 SINGLE LIVE 06/27/2016 RICKEY FAM [...] 19 WEEKS GESTATION OF 06/28/2016 RICKEY FAM MD Ot O99.810 ABNORMAL GLUCOSE COMPLICATING 07/22/2016 Ot V28.81 ENCOUNTER FOR ANATOMIC SURVEY 07/22/2016 Ot 641.23 TYREE SEPAR PLAC-ANTEPART 07/22/2016 RICKEY FAM MD Ot Z34.81 ENCOUNTER FOR SUPRVSN OF NORMAL PREGNANC 07/22/2016 RICKEY FAM MD Ot Z36 ENCOUNTER FOR SCREENING OF MOT 07/22/2016 RICKEY FAM MD, Ot Z36 ENCOUNTER FOR SCREENING OF MOT 07/22/2016 RICKEY FAM MD, Ot Z3A.19 19 WEEKS GESTATION OF 07/22/2016 RICKEY FAM MD, Ot O99.810 ABNORMAL GLUCOSE COMPLICATING 07/07/2017 Ot V28.81 ENCOUNTER FOR ANATOMIC SURVEY 07/07/2017 Ot 641.23 TYREE SEPAR PLAC-ANTEPART 07/07/2017 RICKEY FAM MD Ot Z34.81 ENCOUNTER FOR SUPRVSN OF NORMAL PREGNANC 07/07/2017 RICKEY FAM MD Ot Z36 ENCOUNTER FOR SCREENING OF MOT 07/07/2017 RICKEY FAM MD, Ot Z36 ENCOUNTER FOR SCREENING OF MOT 07/07/2017 RICKEY FAM MD, Ot Z3A.19 19 WEEKS GESTATION OF 07/07/2017 RICKEY FAM MD Ot O99.810 ABNORMAL GLUCOSE COMPLICATING 07/07/2017 Ot V28.81 ENCOUNTER FOR ANATOMIC SURVEY 07/07/2017 Ot 641.23 TYREE SEPAR PLAC-ANTEPART 07/07/2017 RICKEY FAM MD, Ot Z34.81 ENCOUNTER FOR SUPRVSN OF NORMAL PREGNANC 07/07/2017 RICKEY FAM MD Ot Z36 ENCOUNTER FOR SCREENING OF MOT 07/07/2017 RICKEY FAM MD Ot Z36 ENCOUNTER FOR SCREENING OF MOT 07/07/2017 RICKEY FAM MD, Ot Z3A.19 19 WEEKS GESTATION OF 07/07/2017 RICKEY FAM MD Ot O99.810 ABNORMAL GLUCOSE COMPLICATING 07/08/2017 RICKEY FAM MD, Ot Z34.82 ENCOUNTER FOR SUPRVSN OF NORMAL PREGNANC 07/08/2017 RICKEY FAM MD, Ot Z3A.22 22 WEEKS GESTATION OF 07/29/2017 Ot V28.81 ENCOUNTER FOR ANATOMIC SURVEY 07/29/2017 Ot 641.23 TYREE SEPAR PLAC-ANTEPART 07/29/2017 RICKEY FAM MD Ot Z34.81 ENCOUNTER FOR SUPRVSN OF NORMAL PREGNANC 07/29/2017 RICKEY FAM MD Ot Z36 ENCOUNTER FOR SCREENING OF MOT 07/29/2017 RICKEY FAM MD, Ot Z36 ENCOUNTER FOR SCREENING OF MOT 07/29/2017 RICKEY FAM MD, Ot Z3A.19 19 WEEKS GESTATION OF 07/29/2017 RICKEY FAM MD, Ot O99.810 ABNORMAL GLUCOSE COMPLICATING 07/29/2017 RICKEY FAM MD, Ot Z34.82 ENCOUNTER FOR SUPRVSN OF NORMAL PREGNANC 07/29/2017 RICKEY FAM MD, Ot Z3A.22 22 WEEKS GESTATION OF 09/12/2017 RICKEY FAM MD Ot O99.810 ABNORMAL GLUCOSE COMPLICATING 09/13/2017 RICKEY FAM MD Ot O99.810 ABNORMAL GLUCOSE COMPLICATING 10/11/2017 Ot V28.81 ENCOUNTER FOR ANATOMIC SURVEY 10/11/2017 Ot 641.23 TYREE SEPAR PLAC-ANTEPART 10/11/2017 RICKEY FAM MD Ot Z34.81 ENCOUNTER FOR SUPRVSN OF NORMAL PREGNANC 10/11/2017 RICKEY FAM MD Ot Z36 ENCOUNTER FOR SCREENING OF MOT 10/11/2017 RICKEY FAM MD, Ot Z36 ENCOUNTER FOR SCREENING OF MOT 10/11/2017 RICKEY FAM MD, Ot Z3A.19 19 WEEKS GESTATION OF 10/11/2017 RICKEY FAM MD, Ot O99.810 ABNORMAL GLUCOSE COMPLICATING 10/11/2017 RICKEY FAM MD, Ot Z34.82 ENCOUNTER FOR SUPRVSN OF NORMAL PREGNANC 10/11/2017 RICKEY FAM MD, Ot Z3A.22 22 WEEKS GESTATION OF 10/11/2017 RICKEY FAM MD Ot O99.810 ABNORMAL GLUCOSE COMPLICATING 10/11/2017 RICKEY FAM MD, Ot O99.810 ABNORMAL GLUCOSE COMPLICATING Procedures Code Description Performed By Performed On 73.59 MANUAL ASSIST DELIV NEC 11/30/2010 73.59 MANUAL ASSIST DELIV NEC 09/25/2014 [id number] DELIVERY OF PRODUCTS OF CONCEPTION, EXTE 06/26/2016 [...] 04:45 Blood leukocytes automated count (number/volume) 8.9 10*3/uL 4.3-11.0 Blood erythrocytes automated count (number/volume) 4.11 10*6/uL 4.35-5.85 Venous blood hemoglobin measurement (mass/volume) 12.8 [...] Automated blood platelet mean volume measurement 11.2 [foz_us] 7.4-10.4 Automated blood neutrophils/100 leukocytes 73 % [...] ABO+Rh group OP NRG Transfusion band number [id number] NRG Blood group antibody screen NEGATIVE NRG Complete blood count (CBC) with automated white blood cell (WBC) differential - 06/27/16 06:15 Blood leukocytes automated count (number/volume) 9.2 10*3/uL 4.3-11.0 Blood erythrocytes automated count (number/volume) 3.67 10*6/uL 4.35-5.85 Venous blood hemoglobin measurement (mass/volume) 11.6 [...] Automated blood platelet mean volume measurement 10.9 [foz_us] 7.4-10.4 Automated blood neutrophils/100 leukocytes 71 % [...] blood basophil count (count/volume) 0.0 10*3/uL 0.0-0.1 Serum or plasma glucose measurement 3 hours post challenge (mass/volume) - 09:32 Serum or plasma glucose measurement 3 hours post challenge (mass/volume) NRG Complete blood count (CBC) with automated white blood cell (WBC) differential - 11/01/17 21:50 Blood leukocytes automated count (number/volume) 10.9 10*3/uL 4.3-11.0 Blood erythrocytes automated count (number/volume) 4.32 10*6/uL 4.35-5.85 Venous blood hemoglobin measurement (mass/volume) 13.7 g/dL 11.5-16.0 Blood hematocrit (volume fraction) 39 % 35-52 Automated erythrocyte mean corpuscular volume 91 [foz_us] 80-99 Automated erythrocyte mean corpuscular hemoglobin (mass per erythrocyte) 32 pg 25-34 Automated erythrocyte mean corpuscular hemoglobin concentration measurement ( mass/volume) 35 g/dL 32-36 Automated erythrocyte distribution width ratio 13.5 % 10.0-14.5 Automated blood platelet count (count/volume) 185 10*3/uL 130-400 Automated blood platelet mean volume measurement 11.4 [foz_us] 7.4-10.4 Automated blood neutrophils/100 leukocytes 67 % 42-75 Automated blood lymphocytes/100 leukocytes 27 % 12-44 Blood monocytes/100 leukocytes 6 % 0-12 Automated blood eosinophils/100 leukocytes 0 % 0-10 Automated blood basophils/100 leukocytes 0 % 0-10 Blood neutrophils automated count (number/volume) 7.3 10*3 1.8-7.8 Blood lymphocytes automated count (number/volume) 2.9 10*3 1.0-4.0 Blood monocytes automated count (number/volume) 0.7 10*3 0.0-1.0 Automated eosinophil count 0.0 10*3/uL 0.0-0.3 Automated blood basophil count (count/volume) 0.0 10*3/uL 0.0-0.1 Blood type T Indirect antibody screen panel - 11/01/17 21:50 ABO+Rh group OP NRG Transfusion band number [id number] NR Blood group antibody screen NEGATIVE NRG Complete blood count (CBC) with automated white blood cell (WBC) differential - 11/02/17 05:23 Blood leukocytes automated count (number/volume) 14.4 10*3/uL 4.3-11.0 Blood erythrocytes automated count (number/volume) 3.98 10*6/uL 4.35-5.85 Venous blood hemoglobin measurement (mass/volume) 13.1 g/dL 11.5-16.0 Blood hematocrit (volume fraction) 37 % 35-52 Automated erythrocyte mean corpuscular volume 92 [foz_us] 80-99 Automated erythrocyte mean corpuscular hemoglobin (mass per erythrocyte) 33 pg 25-34 Automated erythrocyte mean corpuscular hemoglobin concentration measurement ( mass/volume) 36 g/dL 32-36 Automated erythrocyte distribution width ratio 13.4 % 10.0-14.5 Automated blood platelet count (count/volume) 166 10*3/uL 130-400 Automated blood platelet mean volume measurement 11.1 [foz_us] 7.4-10.4 Automated blood neutrophils/100 leukocytes 79 % 42-75 Automated blood lymphocytes/100 leukocytes 15 % 12-44 Blood monocytes/100 leukocytes 6 % 0-12 Automated blood eosinophils/100 leukocytes 0 % 0-10 Automated blood basophils/100 leukocytes 0 % 0-10 Blood neutrophils automated count (number/volume) 11.4 10*3 1.8-7.8 Blood lymphocytes automated count (number/volume) 2.1 10*3 1.0-4.0 Blood monocytes automated count (number/volume) 0.9 10*3 0.0-1.0 Automated eosinophil count 0.0 10*3/uL 0.0-0.3 Automated blood basophil count (count/volume) 0.0 10*3/uL 0.0-0.1 Encounters ACCT No. Visit Date/Time Discharge Status Pt. Type Provider Facility Loc./Unit Complaint [id number] 09/10/2017 09:16:00 09/10/2017 23:59:59 CLS Outpatient RICKEY FAM MD [facility] LAB Z34.93,R73.02 [id number] 07/07/2017 15:26:00 07/07/2017 23:59:59 CLS Outpatient RICKEY FAM MD [facility] RAD Z34.80 NORMAL IN MULTIGRAVIDA [id number] 06/26/2016 04:37:00 06/27/2016 15:30:00 DIS Inpatient RICKEY FAM MD [facility] LDRP LABOR [id number] 04/12/2016 07:12:00 04/12/2016 23:59:59 CLS Outpatient RICKEY FAM MD [facility] LAB ABNORMAL GLUCOSE TOLERANCE TEST IN [id number] 02/04/2016 16:22:00 02/04/2016 23:59:59 CLS Outpatient RICKEY FAM MD [facility] RAD UNABLE TO HEAR HEART TONES, SURVEY [id number] 12/16/2015 13:16:00 12/16/2015 23:59:59 CLS Outpatient RICKEY FAM MD [facility] RAD IN MULTIGRAVIDA [id number] 09/25/2014 03:05:00 09/26/2014 20:48:00 DIS Inpatient RICKEY FAM MD [facility] LDRP LABOR [id number] 09/24/2014 18:24:00 09/24/2014 21:50:00 DIS Outpatient RICKEY FAM MD [facility] WSo OB EVAL [id number] 11/02/2017 07:55:00 Document Registration [id number] 06/14/2014 10:10:00 Document Registration [id number] 05/20/2014 10:55:00 Document Registration [id number] 11/30/2010 17:50:00 Document Registration [id number] 09/07/2010 15:29:00 Document Registration [id number] 08/25/2010 10:31:00 Document Registration [id number] 06/26/2010 13:13:00 Document Registration
[2017-11-06 18:20] LABS: BILIRUBIN,URINE NEGATIVE (NEGATIVE); CLARITY,URINE BLOODY; COLOR,URINE RED; GLUCOSE, URINE (UA) NEGATIVE (NEGATIVE); KETONES,URINE NEGATIVE (NEGATIVE); LEUKOCYTE ESTERASE ,URINE 3+ (NEGATIVE); NITRITE,URINE POSITIVE (NEGATIVE); PH,URINE 6.5 (5-9); PROTEIN,URINE 4+ (NEGATIVE); UROBILINOGEN,URINE NORMAL (NORMAL)
--- NOTE | 2017-11-06 18:20 | ED GU-Female ---
General Chief Complaint: -Female Stated Complaint: PAIN WITH URINATION Nursing Triage Note: ARRIVED VIA AMB TO ROOM 06. VAGINAL DELIVERY ON TUE. YESTERDAY STARTED HAVING SOME LOWER ABD PAIN AND TODAY STARTED HAVING PAIN WITH URINATION. Nursing Sepsis Screen: No Definite Risk Source: patient Exam Limitations: no limitations History of Present Illness Date Seen by Provider: Nov 06, 2017 Time Seen by Provider: 18:10 Initial Comments This 32-year-old woman presents to the ER on day number 5 with complaints of right lower quadrant pain, pain with urination, and hematuria since yesterday. She is afebrile but complains of chills. She is status post appendectomy. She denies any nausea or vomiting. 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 Allergies and Home Medications Allergies Coded Allergies: No Known Drug Allergies (Unverified , 11/30/10) Home Medications Cephalexin 500 Mg Capsule, 500 MG PO QID Prescribed by: DINAH MCNAIR on 11/06/17 2213 Ibuprofen 600 Mg Tablet, 600 MG PO Q6H Prescribed by: RICKEY FAM on 06/27/16 0826 Vit/Fe Fumarate/Fa 1 Each Tablet, 1 EACH PO DAILY, (Reported) Patient Home Medication List Home Medication List Reviewed: Yes Review of Systems Constitutional: see HPI, chills EENTM: no symptoms reported Respiratory: no symptoms reported Cardiovascular: no symptoms reported Gastrointestinal: see HPI Genitourinary: see HPI : No Musculoskeletal: no symptoms reported Skin: no symptoms reported Psychiatric/Neurological: No Symptoms Reported Endocrine: No Symptoms Reported Hematologic/Lymphatic: No Symptoms Reported Past Rnhofbs-Rnaozo-Jsdhdo Hx Past Med/Social Hx: Reviewed Nursing Past Med/Soc Hx Patient Social History Alcohol Use: Denies Use Recreational Drug Use: No Smoking Status: Never a Smoker Recent Foreign Travel: No Contact w/Someone Who Travel: No Recent Infectious Disease Expo: No Recent Hopitalizations: No Immunizations Up To Date Tetanus Booster (TDap): Unknown PED Vaccines UTD: Yes Date of Influenza Vaccine: Jan 07, 2016 Seasonal Allergies Seasonal Allergies: No Past Medical History Surgeries: Yes Appendectomy Respiratory: No Cardiac: No Neurological: No : No Reproductive Disorders: No Female Reproductive Disorders: Denies Genitourinary: No Gastrointestinal: No Musculoskeletal: No Endocrine: No HEENT: No Loss of Vision: Denies Hearing Impairment: Denies Cancer: No Psychosocial: No Integumentary: No Blood Disorders: Yes Family Medical History Patient reports no known family medical history. Physical Exam Vital Signs Vital Signs - First Documented 11/06/17 17:56 Temp 97.2 Pulse 88 Resp 16 Pulse Ox 97 O2 Delivery Room Air Capillary Refill : Less Than 3 Seconds Height, Weight, BMI Height: 5'2.00" Weight: 160lbs. 4.0oz. 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, no motor/sensory deficits, alert, normal mood/affect, oriented x 3 Skin: normal color, warm/dry Progress/Results/Core Measures Suspected Sepsis Recent Fever Within 48 Hours: No Infection Criteria Present: None New/Unexplained Altered Menta: No Sepsis Screen: No Definite Risk SIRS Temperature:97.2 Pulse: 88 Respiratory Rate: 16 Laboratory Tests 11/06/17 18:57: White Blood Count 14.9H Blood Pressure / Mean: Laboratory Tests 11/06/17 18:57: Creatinine 0.55L, Platelet Count 225, Total Bilirubin 0.7 Results/Orders Lab Results Laboratory Tests Test 11/06/17 18:09 11/06/17 18:57 Range/Units Urine Color RED H Urine Clarity BLOODY H Urine pH 6.5 5-9 Urine Specific [place] 1.020 1.016-1.022 Urine Protein 4+ NEGATIVE Urine Glucose (UA) NEGATIVE NEGATIVE Urine Ketones NEGATIVE NEGATIVE Urine Nitrite POSITIVE H NEGATIVE Urine Bilirubin NEGATIVE NEGATIVE Urine Urobilinogen NORMAL NORMAL MG/DL Urine Leukocyte Esterase 3+ H NEGATIVE Urine RBC (Auto) 5+ H NEGATIVE Urine RBC TNTC H /HPF Urine WBC 50-100 H /HPF Urine Squamous Epithelial Cells 2-5 /HPF Urine Renal Epithelial Cells NONE /HPF Urine Crystals NONE /LPF Urine Bacteria FEW H /HPF Urine Casts NONE /LPF Urine Mucus SMALL H /LPF Urine Culture Indicated YES White Blood Count 14.9 H 4.3-11.0 10^3/uL Red Blood Count 4.64 4.35-5.85 10^6/uL Hemoglobin 14.9 11.5-16.0 G/DL Hematocrit 43 35-52 % Mean Corpuscular Volume 93 80-99 FL Mean Corpuscular Hemoglobin 32 25-34 PG Mean Corpuscular Hemoglobin Concent 35 32-36 G/DL Red Cell Distribution Width 13.5 10.0-14.5 % Platelet Count 225 130-400 10^3/uL Mean Platelet Volume 10.7 H 7.4-10.4 FL Neutrophils (%) (Auto) 82 H 42-75 % Lymphocytes (%) (Auto) 12 12-44 % Monocytes (%) (Auto) 5 0-12 % Eosinophils (%) (Auto) 1 0-10 % Basophils (%) (Auto) 0 0-10 % Neutrophils # (Auto) 12.2 H 1.8-7.8 X 10^3 Lymphocytes # (Auto) 1.8 1.0-4.0 X 10^3 Monocytes # (Auto) 0.7 0.0-1.0 X 10^3 Eosinophils # (Auto) 0.1 0.0-0.3 10^3/uL Basophils # (Auto) 0.0 0.0-0.1 10^3/uL Neutrophils % (Manual) 71 % Lymphocytes % (Manual) 15 % Monocytes % (Manual) 6 % Eosinophils % (Manual) 2 % Basophils % (Manual) 1 % Band Neutrophils 5 % Poikilocytosis MODERATE Stomatocytes MODERATE Sodium Level 143 135-145 MMOL/L Potassium Level 4.0 3.6-5.0 MMOL/L Chloride Level 108 H 98-107 MMOL/L Carbon Dioxide Level 23 21-32 MMOL/L Anion Gap 12 5-14 MMOL/L Blood Urea Nitrogen 7 7-18 MG/DL Creatinine 0.55 L 0.60-1.30 MG/DL Estimat Glomerular Filtration Rate > 60 BUN/Creatinine Ratio 13 Glucose Level 102 70-105 MG/DL Calcium Level 9.8 8.5-10.1 MG/DL Corrected Calcium 9.9 8.5-10.1 MG/DL Total Bilirubin 0.7 0.1-1.0 MG/DL Aspartate Amino Transf (AST/SGOT) 54 H 5-34 U/L Alanine Aminotransferase (ALT/SGPT) 74 H 0-55 U/L Alkaline Phosphatase 106 40-136 U/L Total Protein 7.6 6.4-8.2 GM/DL Albumin 3.9 3.2-4.5 GM/DL My Orders Orders - DINAH JIN MD Ua Culture If Indicated (11/06/17 18:10) Urine Culture (11/06/17 18:09) Ketorolac Injection (Toradol Injection) (11/06/17 18:45) Ceftriaxone Injection (Rocephin Injectio (11/06/17 18:45) Saline Lock/Iv-Start (11/06/17 18:41) Ns Iv 1000 Ml (Sodium Chloride 0.9%) (11/06/17 18:41) Ct Abd/Pelvis Wo(Kidney Stone) (11/06/17 18:44) Cbc With Automated Diff (11/06/17 18:46) Comprehensive Metabolic Panel (11/06/17 18:46) Manual Differential (11/06/17 18:57) Us Pelvic (Non Ob)56838 (11/06/17 19:39) Medications Given in ED Current Medications Medications Dose Ordered Sig/Jennifer Route Start Time Stop Time Status Last Admin Dose Admin Ceftriaxone Sodium 1000 mg/ Sodium Chloride 50 ml @ 100 mls/hr ONCE ONCE IV 18 18:45 11/06/17 19:14 DC 11/06/17 19:27 100 MLS/HR Ketorolac Tromethamine 15 mg ONCE ONCE IVP 18 18:45 11/06/17 18:46 DC 11/06/17 18:57 15 MG Sodium Chloride 1,000 ml @ 0 mls/hr Q0M ONCE IV 11/06/17 18:41 11/06/17 18:44 DC 11/06/17 18:56 1,000 MLS/HR Vital Signs/I&O 11/06/17 17:56 Temp 97.2 Pulse 88 Resp 16 B/P (MAP) Pulse Ox 97 O2 Delivery Room Air Capillary Refill : Less Than 3 Seconds Progress Note #1: Time: 18:47 Progress Note Patient was noted to have numerous white blood cells and a blood in her urine. It is uncertain if this blood is coming from lochia or from the urine itself. However, with patient's intense colicky pain in the right lower quadrant ureteral stone is of concern. Options were discussed with the patient and her . They wish to proceed with CT scan for stone search. In the meantime we will establish an IV and treat her with Toradol and Rocephin. Patient requested something for pain. Since an IV will be established we will also hydrate her with IV saline to help flush the urinary tract. Progress Note #2: Time: 19:45 Progress Note No ureteral stones were found in the location of patient's pain. The bladder is somewhat displaced to the right by the enlarged uterus. This may be the cause of her right sided pain. However, the radiologist did recommend follow- up ultrasound to evaluate contents of the uterus. Ultrasound has been ordered. Patient has no pain at this time after Toradol. Progress Note #3: Progress Note Patient remained pain free throughout the remainder of her ER visit. Ultrasound was obtained. There were no pathologic findings with the uterus. I discussed results with Dr. Sharif. There was an unusual appearance of a structure to the right of the uterus. The structure had a vascular flow. Since no bladder was seen on ultrasound, this was presumed to be a collapsed bladder. However, this is not a certain determination. If patient has worsening symptoms, repeat imaging with CT scan with contrast should be considered. Diagnostic Imaging Diagonstic Imaging: CT Plain Films/CT/US/NM/MRI: abdomen, pelvis Comments CT abdomen and pelvis viewed by me and report reviewed. See report below: NAME: NOAM SIEGEL [facility] REC#: [id number] PT STATUS: REG ER : 1985 PHYSICIAN: DINAH JIN MD ADMIT DATE: 11/06/17/ER Draft Date of Exam:11/06/17 CT ABD/PELVIS WO(KIDNEY STONE) PROCEDURE: CT urinary tract, rule out kidney stone. TECHNIQUE: Multiple contiguous axial images were obtained through the abdomen and pelvis without the use of intravenous contrast. INDICATION: Painful urination . COMPARISON: There are no prior CT examinations available for comparison. FINDINGS: The uterus is enlarged consistent with the patient's status. There is increased density within the endometrium of the uterus. This may be secondary to the endometrium itself. The possibility that there are blood products within the endometrium should certainly be considered. Ultrasound would be recommended for further evaluation. There is no evidence for nephrolithiasis, but there are several small calcifications near the ureterovesical junction on the left. These may well lie outside of the ureter as the left ureter does not seem to be dilated, and there is no evidence for obstruction of the left collecting system. If further study is desired, then a followup exam with intravenous contrast would be recommended. There is no sign of obstruction of the right kidney either. The urinary bladder is grossly unremarkable. The appendix was not well visualized, but there are no indirect signs of acute appendicitis. The liver, spleen, pancreas, adrenals, aorta, and inferior vena cava are unremarkable for an acute abnormality. The gallbladder is surgically absent. The stomach is partially filled with fluid and consequently difficult to assess. The bone windows show no evidence for a fracture or for a destructive lesion. The lung bases are clear. IMPRESSION: 1. There are several calcific densities near the ureterovesical junction on the left. However, these are most likely phleboliths as they appear to lie outside of the left ureter. There is no sign of obstruction of the left collecting system. Recommendations as above. 2. There is no evidence for obstruction of the right collecting system either. 3. There is no acute abnormality of the abdomen or pelvis noted otherwise. 4. The uterus is enlarged consistent with the patient's status. The increased density within the endometrium could be secondary to blood products. Recommendations as above. Dictated on workstation # [id number] Dict: 11/06/171916 Trans: 11/06/171927 [id number] Interpreted by: FLORIDA SHARIF MD Departure Impression Primary Impression: Right lower quadrant pain Additional Impression: Urinary tract infection Qualified Codes: N39.0 - Urinary tract infection, site not specified; R31.9 - Hematuria, unspecified Disposition: 01 HOME, SELF-CARE Condition: Improved Departure-Patient Inst. Decision time for Depature: 21:50 Referrals: RICKEY FAM MD (PCP/Family) Primary Care Physician Patient Instructions: Acute Abdomen (Belly Pain), Urinary Tract Infection, Adult (DC) Add. Discharge Instructions: Drink plenty of clear liquids. Complete your antibiotic as prescribed. You may take ibuprofen up to 600 mg every 6 hours as needed for pain. You may add Tylenol (acetaminophen) up to 1000 mg every 6 hours as needed for additional pain relief. Follow-up with Dr. Fam early this week. Return to emergency room if you develop fever greater than 100, if you develop new symptoms such as vomiting, or if you have worsening pain despite medications. All discharge instructions reviewed with patient and/or family. Voiced understanding. Scripts Cephalexin (Keflex) 500 Mg Capsule 500 MG PO QID, #28 CAP Prov: DINAH JIN MD 11/06/17 DINAH JIN MD Nov 06, 2017 18:20
[2017-11-06 18:33] LABS: BACTERIA,URINE FEW /HPF; RBC,URINE TNTC /HPF; WBC,URINE 50-100 /HPF
[2017-11-06] MEDS ORDERED: NS IV 1000 ML 1,000 ML IV ONE (18:41)
[2017-11-06] MEDS ORDERED: cefTRIAXone INJECTION 1,000 MG in NS (IVPB) 50 ML IV ONE (18:45)
[2017-11-06] MEDS ORDERED: KETOROLAC 30 MG/ML VIAL IVP ONE (18:45)
[2017-11-06 19:11] LABS: BASOPHILS % (AUTO) 0 % (0-10); EOSINOPHILS # (AUTO) 0.1 10^3/uL (0.0-0.3); EOSINOPHILS % (AUTO) 1 % (0-10); HEMATOCRIT 43 % (35-52); HEMOGLOBIN 14.9 G/DL (11.5-16.0); LYMPHOCYTES # (AUTO) 1.8 X 10^3 (1.0-4.0); LYMPHOCYTES % (AUTO) 12 % (12-44); MEAN CORPUSCULAR HEMOGLOBIN 32 PG (25-34); MEAN CORPUSCULAR HGB CONC 35 G/DL (32-36); MEAN CORPUSCULAR VOLUME 93 FL (80-99); MEAN PLATELET VOLUME 10.7 FL (7.4-10.4); MONOCYTES # (AUTO) 0.7 X 10^3 (0.0-1.0); MONOCYTES % (AUTO) 5 % (0-12); NEUTROPHILS # (AUTO) 12.2 X 10^3 (1.8-7.8); NEUTROPHILS % (AUTO) 82 % (42-75); PLATELET COUNT 225 10^3/uL (130-400); RED BLOOD COUNT 4.64 10^6/uL (4.35-5.85); RED CELL DISTRIBUTION WIDTH 13.5 % (10.0-14.5); WHITE BLOOD COUNT 14.9 10^3/uL (4.3-11.0)
--- NOTE | 2017-11-06 19:28 | Diagnostic Imaging Report ---
PROCEDURE: CT urinary tract, rule out kidney stone. TECHNIQUE: Multiple contiguous axial images were obtained through the abdomen and pelvis without the use of intravenous contrast. INDICATION: Painful urination . COMPARISON: There are no prior CT examinations available for comparison. FINDINGS: The uterus is enlarged consistent with the patient's status. There is increased density within the endometrium of the uterus. This may be secondary to the endometrium itself. The possibility that there are blood products within the endometrium should certainly be considered. Endometritis this could also present in this manner. Ultrasound would be recommended for further evaluation. There is no evidence for nephrolithiasis, but there are several small calcifications near the ureterovesical junction on the left. These may well lie outside of the ureter as the left ureter does not seem to be dilated, and there is no evidence for obstruction of the left collecting system. If further study is desired, then a followup exam with intravenous contrast would be recommended. There is no sign of obstruction of the right kidney either. The urinary bladder is grossly unremarkable. The appendix was not well visualized, but there are no indirect signs of acute appendicitis. The liver, spleen, pancreas, adrenals, aorta, and inferior vena cava are unremarkable for an acute abnormality. The gallbladder is surgically absent. The stomach is partially filled with fluid and consequently difficult to assess. The bone windows show no evidence for a fracture or for a destructive lesion. The lung bases are clear. IMPRESSION: 1. There are several calcific densities near the ureterovesical junction on the left. However, these are most likely phleboliths as they appear to lie outside of the left ureter, and there is no sign of obstruction of the left collecting system. Recommendations as above. 2. There is no evidence for obstruction of the right collecting system either. 3. There is no acute abnormality of the abdomen or pelvis noted otherwise. 4. The uterus is enlarged consistent with the patient's status. The increased density within the endometrium could be secondary to blood products within the endometrium or to an endometritis.. Recommendations as above. Dictated by: Dictated on workstation # [id number]
[2017-11-06 19:33] LABS: ALANINE AMINOTRANSFERASE 74 U/L (0-55); ALBUMIN 3.9 GM/DL (3.2-4.5); ALKALINE PHOSPHATASE 106 U/L (40-136); BILIRUBIN,TOTAL 0.7 MG/DL (0.1-1.0); BUN/CREATININE RATIO 13; CALCIUM 9.8 MG/DL (8.5-10.1); CARBON DIOXIDE 23 MMOL/L (21-32); CHLORIDE 108 MMOL/L (98-107); CREATININE SERUM 0.55 MG/DL (0.60-1.30); GFR ESTIMATED > 60; GLUCOSE 102 MG/DL (70-105); SODIUM 143 MMOL/L (135-145); TOTAL PROTEIN 7.6 GM/DL (6.4-8.2)
[2017-11-06 19:40] LABS: BAND NEUTROPHILS 5 %; BASOPHILS % (MANUAL) 1 %; EOSINOPHILS % (MANUAL) 2 %; LYMPHOCYTES % (MANUAL) 15 %; MONOCYTES % (MANUAL) 6 %; NEUTROPHILS % (MANUAL) 71 %
[2017-11-06 19:41] LABS: POIKILOCYTOSIS MODERATE; STOMATOCYTES MODERATE
[2017-11-06 22:08] VITALS: BP 109/72
[2017-11-06] MEDS ORDERED: CEPH-507 PO (22:13)
--- NOTE | 2017-11-06 22:17 | Diagnostic Imaging Report ---
PROCEDURE: US pelvic (non OB). TECHNIQUE: Multiple real-time grayscale images were obtained over the pelvis in various projections, transabdominally. INDICATION: Pelvic pain. FINDINGS: The CT abdomen/pelvis exam performed prior to this study noted that there was increased density within the endometrium of the uterus. It is not certain whether this is related to retained products of conception in this patient or endometritis. On this exam, the uterus is enlarged, measuring 16.7 13.7 x 7.8 cm. The endometrial lining is thickened, measuring 15 mm (normal 5 mm or less). There is some mixed echogenicity within the endometrium which may be related to fluid slightly complicated by hemorrhage. There is no sign of retained products of conception or endometritis. There is no focal mass involving the uterus to suggest a fibroid either. Neither ovary was identified. In the right lower quadrant near the uterus there is a 6.0 x 8.0 x 4.3 cm vascular mass. In reviewing the CT exam, there is no evidence for a solid mass in this area. The bladder was displaced to the right. This finding does not have the typical appearance of the bladder but that possibly should be considered. If further study is desired, then followup CT abdomen/pelvis exam with oral and intravenous contrast would be recommended. There is no pelvic mass or free fluid collection noted. IMPRESSION: 1. The uterus is enlarged consistent with the patient's status. 2. The endometrial lining is thickened and there is mixed echogenicity within the endometrium. This may be related to fluid which has been slightly complicated by hemorrhage. However, there is no sign of endometritis or retained products of conception. 3. The soft tissue density in the right pelvis is of uncertain etiology. Considerations and recommendations as above. 4. These results were discussed with Dr. Piper. Dictated by: Dictated on workstation # [id number]
== END 2017-11-06 22:23 | disposition home or self-care (01) ==
LOC: EDUNIT# 17:28 → ER 17:33
DX: O86.20 Urinary tract infection following delivery, unspecified (principal); Z90.49 Acquired absence of other specified parts of digestive tract; Z85.6 Personal history of leukemia
CPT/HCPCS: 36415; 74176; 76856; 80053; 81000; 85007; 85027; 87077; 87088; 87186

== ENCOUNTER 2018-03-19 13:57 | Emergency (ER) | payer SELFPAY ==
[~2018-03-19] VITALS: Ht 156.2 cm; Wt 61.2 kg
[~2018-03-19 13:57] MED LIST changes: +CEPH-507 PO
[2018-03-19 14:34] LABS: BASOPHILS % (AUTO) 0 % (0-10); EOSINOPHILS # (AUTO) 0.1 10^3/uL (0.0-0.3); EOSINOPHILS % (AUTO) 1 % (0-10); HEMATOCRIT 41 % (35-52); LYMPHOCYTES # (AUTO) 2.3 X 10^3 (1.0-4.0); LYMPHOCYTES % (AUTO) 34 % (12-44); MEAN CORPUSCULAR HEMOGLOBIN 31 PG (25-34); MEAN CORPUSCULAR HGB CONC 37 G/DL (32-36); MEAN CORPUSCULAR VOLUME 84 FL (80-99); MEAN PLATELET VOLUME 10.3 FL (7.4-10.4); MONOCYTES # (AUTO) 0.8 X 10^3 (0.0-1.0); MONOCYTES % (AUTO) 13 % (0-12); NEUTROPHILS # (AUTO) 3.5 X 10^3 (1.8-7.8); NEUTROPHILS % (AUTO) 52 % (42-75); PLATELET COUNT 233 10^3/uL (130-400); RED BLOOD COUNT 4.89 10^6/uL (4.35-5.85); RED CELL DISTRIBUTION WIDTH 12.9 % (10.0-14.5); WHITE BLOOD COUNT 6.7 10^3/uL (4.3-11.0)
[2018-03-19 14:34] LABS: BILIRUBIN,URINE NEGATIVE (NEGATIVE); CLARITY,URINE CLEAR; COLOR,URINE YELLOW; GLUCOSE, URINE (UA) NEGATIVE (NEGATIVE); KETONES,URINE 1+ (NEGATIVE); LEUKOCYTE ESTERASE ,URINE 2+ (NEGATIVE); NITRITE,URINE POSITIVE (NEGATIVE); PH,URINE 6.5 (5-9); PROTEIN,URINE 3+ (NEGATIVE); UROBILINOGEN,URINE 1 MG/DL (NORMAL)
[2018-03-19] MEDS ORDERED: ONDANSETRON 4 MG/2 ML (SDV) Z0FRAN IVP ONE (14:45)
[2018-03-19] MEDS: NS IV 1000 ML 1,000 ML IV SCH ×7 (14:45→17:06)
[2018-03-19 14:47] LABS: BACTERIA,URINE NEGATIVE /HPF; WBC,URINE 0-2 /HPF
[2018-03-19 14:55] LABS: ALANINE AMINOTRANSFERASE 50 U/L (0-55); ALBUMIN 4.8 GM/DL (3.2-4.5); ALKALINE PHOSPHATASE 65 U/L (40-136); AMYLASE 70 U/L (25-125); BILIRUBIN,TOTAL 0.5 MG/DL (0.1-1.0); BUN/CREATININE RATIO 26; CALCIUM 9.5 MG/DL (8.5-10.1); CARBON DIOXIDE 24 MMOL/L (21-32); CHLORIDE 101 MMOL/L (98-107); CREATININE SERUM 0.72 MG/DL (0.60-1.30); GFR ESTIMATED > 60; GLUCOSE 105 MG/DL (70-105); LIPASE 62 U/L (8-78); POTASSIUM 2.9 MMOL/L (3.6-5.0); SODIUM 140 MMOL/L (135-145); TOTAL PROTEIN 8.3 GM/DL (6.4-8.2)
[2018-03-19] MEDS ORDERED: KCL 20 MEQ TAB (K-DUR) PO ONE (15:45)
[2018-03-19] MEDS ORDERED: POTASSIUM CL 10MEQ/50ML IVPB 50 ML IV ONE (15:45)
[2018-03-19] MEDS ORDERED: ONDN4T PO (16:14)
--- NOTE | 2018-03-19 16:15 | ED Abdominal Pain ---
General Chief Complaint: Abdominal/GI Problems Stated Complaint: VOMITING/DIARRHEA/FEVER Nursing Triage Note: Pt ambulated to rm 9 w/o difficulty. Pt reports N/V/D since Tuesday. Pt reports fever and abdominal pain on Tuesday, but none since. Pt reports very little urine output today. Pt reports taking Pepto and Nicolasa Lyndora this morning. Pt denies abdominal pain. Sepsis Screen: No Definite Risk Source of Information: Patient Exam Limitations: No Limitations History of Present Illness Date Seen by Provider: Mar 19, 2018 Time Seen by Provider: 14:05 Initial Comments Patient is a 33-year-old female who presents to the emergency room with complaints of nausea vomiting diarrhea for the past 3 days. She has had decreased urine output today. She reports taking Pepto Nicolasa-Lyndora this morning without relief. Denies any abdominal pain. Reports she did have a fever on Tuesday. Timing/Duration: 2-3 Days Associated Symptoms: Nausea/Vomiting, Other (diarrhea) Allergies and Home Medications Allergies Coded Allergies: No Known Drug Allergies (Unverified , 11/30/10) Home Medications Cephalexin 500 Mg Capsule, 500 MG PO QID Prescribed by: DINAH MCNAIR on 11/06/17 2213 Ibuprofen 600 Mg Tablet, 600 MG PO Q6H Prescribed by: RICKEY FAM on 06/27/16 0826 Vit/Fe Fumarate/Fa 1 Each Tablet, 1 EACH PO DAILY, (Reported) Patient Home Medication List Home Medication List Reviewed: Yes Review of Systems Review of Systems Constitutional: see HPI, fever Gastrointestinal: See HPI, Diarrhea, Nausea, Vomiting All Other Systems Reviewed Negative Unless Noted: Yes Past Ajhiznb-Fzfrcy-Ijghmv Hx Past Med/Social Hx: Reviewed Nursing Past Med/Soc Hx Patient Social History Alcohol Use: Denies Use Recreational Drug Use: No Smoking Status: Never a Smoker 2nd Hand Smoke Exposure: No Recent Foreign Travel: No Contact w/Someone Who Travel: No Recent Infectious Disease Expo: No Recent Hopitalizations: No Physical Abuse: No Sexual Abuse: No Immunizations Up To Date Tetanus Booster (TDap): Unknown PED Vaccines UTD: Yes Date of Influenza Vaccine: Jan 07, 2016 Seasonal Allergies Seasonal Allergies: No Past Medical History Surgeries: Yes Appendectomy Respiratory: No Cardiac: No Neurological: No Reproductive Disorders: No Female Reproductive Disorders: Denies Genitourinary: No Gastrointestinal: No Musculoskeletal: No Endocrine: No HEENT: No Loss of Vision: Denies Hearing Impairment: Denies Cancer: No Psychosocial: No Integumentary: No Blood Disorders: Yes Family Medical History Reviewed Nursing Family Hx Patient reports no known family medical history. Physical Exam Vital Signs Vital Signs - First Documented 03/19/18 14:15 Temp 98.2 Pulse 82 Resp 11 B/P (MAP) 110/73 (85) Pulse Ox 98 O2 Delivery Room Air Capillary Refill : Less Than 3 Seconds Height/Weight/BMI Height: 5'1.50" Weight: 135lbs. 4.0oz. 61.975330iv; 34.6 BMI Method:Estimated General Appearance: WD/WN, no apparent distress Neck: non-tender, full range of motion, supple, normal inspection Respiratory: chest non-tender, lungs clear, normal breath sounds, no respiratory distress, no accessory muscle use Cardiovascular: normal peripheral pulses, regular rate, rhythm, no edema, no gallop, no JVD, no murmur Gastrointestinal: normal bowel sounds, non tender, soft, no organomegaly, no pulsatile mass Extremities: normal capillary refill Neurologic/Psychiatric: alert, normal mood/affect, oriented x 3 Skin: normal color, warm/dry Progress/Results/Core Measures Results/Orders Lab Results Laboratory Tests Test 03/19/18 14:18 03/19/18 14:28 Range/Units Urine Color YELLOW Urine Clarity CLEAR Urine pH 6.5 5-9 Urine Specific [place] 1.015 L 1.016-1.022 Urine Protein 3+ H NEGATIVE Urine Glucose (UA) NEGATIVE NEGATIVE Urine Ketones 1+ H NEGATIVE Urine Nitrite POSITIVE H NEGATIVE Urine Bilirubin NEGATIVE NEGATIVE Urine Urobilinogen 1 NORMAL MG/DL Urine Leukocyte Esterase 2+ H NEGATIVE Urine RBC (Auto) 5+ H NEGATIVE Urine RBC 10-20 /HPF Urine WBC 0-2 /HPF Urine Squamous Epithelial Cells 5-10 /HPF Urine Crystals NONE /LPF Urine Bacteria NEGATIVE /HPF Urine Casts NONE /LPF Urine Mucus SMALL H /LPF Urine Culture Indicated NO White Blood Count 6.7 4.3-11.0 10^3/uL Red Blood Count 4.89 4.35-5.85 10^6/uL Hemoglobin 15.0 11.5-16.0 G/DL Hematocrit 41 35-52 % Mean Corpuscular Volume 84 80-99 FL Mean Corpuscular Hemoglobin 31 25-34 PG Mean Corpuscular Hemoglobin Concent 37 H 32-36 G/DL Red Cell Distribution Width 12.9 10.0-14.5 % Platelet Count 233 130-400 10^3/uL Mean Platelet Volume 10.3 7.4-10.4 FL Neutrophils (%) (Auto) 52 42-75 % Lymphocytes (%) (Auto) 34 12-44 % Monocytes (%) (Auto) 13 H 0-12 % Eosinophils (%) (Auto) 1 0-10 % Basophils (%) (Auto) 0 0-10 % Neutrophils # (Auto) 3.5 1.8-7.8 X 10^3 Lymphocytes # (Auto) 2.3 1.0-4.0 X 10^3 Monocytes # (Auto) 0.8 0.0-1.0 X 10^3 Eosinophils # (Auto) 0.1 0.0-0.3 10^3/uL Basophils # (Auto) 0.0 0.0-0.1 10^3/uL Sodium Level 140 135-145 MMOL/L Potassium Level 2.9 L 3.6-5.0 MMOL/L Chloride Level 101 98-107 MMOL/L Carbon Dioxide Level 24 21-32 MMOL/L Anion Gap 15 H 5-14 MMOL/L Blood Urea Nitrogen 19 H 7-18 MG/DL Creatinine 0.72 0.60-1.30 MG/DL Estimat Glomerular Filtration Rate > 60 BUN/Creatinine Ratio 26 Glucose Level 105 70-105 MG/DL Calcium Level 9.5 8.5-10.1 MG/DL Corrected Calcium 8.5-10.1 MG/DL Total Bilirubin 0.5 0.1-1.0 MG/DL Aspartate Amino Transf (AST/SGOT) 43 H 5-34 U/L Alanine Aminotransferase (ALT/SGPT) 50 0-55 U/L Alkaline Phosphatase 65 40-136 U/L Total Protein 8.3 H 6.4-8.2 GM/DL Albumin 4.8 H 3.2-4.5 GM/DL Amylase Level 70 25-125 U/L Lipase 62 8-78 U/L My Orders Orders - KEVIN HARTMAN Comprehensive Metabolic Panel (03/19/18 14:05) Lipase (03/19/18 14:05) Amylase (03/19/18 14:05) Ua Culture If Indicated (03/19/18 14:05) Saline Lock/Iv-Start (03/19/18 14:05) Cbc With Automated Diff (03/19/18 14:05) Ondansetron Injection (Zofran Injectio (03/19/18 14:45) Ns Iv 1000 Ml (Sodium Chloride 0.9%) (03/19/18 14:45) Potassium Cl 10meq/50ml Ivpb (Kcl 10 Meq (03/19/18 15:45) Potassium Chloride (Tablet) (K Dur Table (03/19/18 15:45) Ns Iv 1000 Ml (Sodium Chloride 0.9%) (03/19/18 16:00) Medications Given in ED Current Medications Medications Dose Ordered Sig/Jennifer Route Start Time Stop Time Status Last Admin Dose Admin Ondansetron HCl 4 mg ONCE ONCE IVP 03/19/18 14:45 03/19/18 14:46 DC 03/19/18 14:45 4 MG Potassium Chloride 40 meq ONCE ONCE PO 03/19/18 15:45 03/19/18 15:46 DC 03/19/18 16:00 40 MEQ Potassium Chloride 50 ml @ 50 mls/hr ONCE ONCE IV 03/19/18 15:45 03/19/18 16:44 03/19/18 16:01 50 MLS/HR Vital Signs/I&O 03/19/18 14:15 Temp 98.2 Pulse 82 Resp 11 B/P (MAP) 110/73 (85) Pulse Ox 98 O2 Delivery Room Air Blood Pressure Mean: 85 Progress Progress Note : Time: 15:50 Progress Note I have seen and evaluated the patient. Her nausea has improved at this time and she is feeling much better after the IV fluids. I've of her laboratory findings and the need to replace her potassium. She agrees with plan of care, plans for discharge, return precautions were given. Departure Impression Primary Impression: Nausea vomiting and diarrhea Disposition: HOME, SELF-CARE Condition: Stable/Unchanged Departure-Patient Inst. Decision time for Depature: 16:13 Referrals: [facility] (PCP/Family) Primary Care Physician Patient Instructions: Viral Gastroenteritis, Adult (DC) Add. Discharge Instructions: Take medications as directed. You may use [id number] Imodium as directed by the bottle for diarrhea. Clear liquid diet for the first 24 hours and advance as tolerated. Follow-up with [facility] within 1 week for recheck. Call first thing on 03/22/18 for an appointment time. Return back to the emergency room for any worsening symptoms or concerns as needed. All discharge instructions reviewed with patient and/or family. Voiced understanding. Scripts Ondansetron HCl (Zofran) 4 Mg Tab 4 MG PO Q4H PRN for NAUSEA/VOMITING-1ST LINE, #20 TAB Prov: KEVIN HARTMAN 03/19/18 KEVIN HARTMAN Mar 19, 2018 16:15
[2018-03-19 16:55] VITALS: BP 103/71
== END 2018-03-19 17:01 | disposition home or self-care (01) ==
LOC: EDUNIT# 13:57 → ER 13:58
DX: R11.2 Nausea with vomiting, unspecified (principal); R19.7 Diarrhea, unspecified; Z90.49 Acquired absence of other specified parts of digestive tract
CPT/HCPCS: 36415; 80053; 81000; 82150; 83690; 85025

== ENCOUNTER 2021-12-18 15:47 | Emergency (ER) | payer OTHER ==
[~2021-12-18] VITALS: Ht 160 cm; Wt 67.1 kg
[~2021-12-18 15:47] MED LIST changes: +ONDN4T PO
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
[2021-12-18] MEDS ORDERED: CYCL10TA25 PO (18:11)
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
[2021-12-18 18:21] VITALS: BP 149/87
== END 2021-12-18 18:21 | disposition home or self-care (01) ==
LOC: EDUNIT# 15:47 → ER 15:50
DX: M54.6 Pain in thoracic spine (principal); R07.9 Chest pain, unspecified; Z28.310 Unvaccinated for COVID-19; V49.40XA Driver injured in collision with unspecified motor vehicles in traffic accident, initial encounter; Y92.410 Unspecified street and highway as the place of occurrence of the external cause
CPT/HCPCS: 71250; 84703